=== PATIENT | male | born 1960 | race Caucasian/White ===

== ENCOUNTER 2016-09-11 11:16 | Day surgery (SDC) | payer OTHER ==
[~2016-09-11 11:16] MED LIST: BUPIVACAINE HCL 0.5 % INJ/PF 30 ML SDV ONE; CEFAZOLIN 2 GM/D5W RTU 2 GM/50 ML RTUPB IV PRN; GLYCOPYRROLATE INJ 0.4 MG/2 ML VIAL ONE; LACTATED RINGERS 1000 ML IV PRN; LIDOCAINE 0.5% INJ-PF (5 MG/ML) 50 ML SDV SUBCUT PRN; LIDOCAINE 2% INJ-PF (20 MG/ML) 10 ML AMPUL ONE; METOCLOPRAMIDE HCL INJ/PF 10 MG/2 ML SDV ONE; NEOSTIGMINE METHYLSULFATE 10 MG/10 ML VIAL ONE; ONDANSETRON HCL INJ/PF 4 MG/2 ML SDV ONE; ROCURONIUM BROMIDE INJ 50 MG/5 ML VIAL IV ONE; SUCCINYLCHOLINE CHLORIDE INJ 200 MG/10 ML VIAL ONE
[2016-09-11] MEDS ORDERED: FENTANYL CITRATE INJ/PF 250 MCG/5 ML AMPULE ONE (12:03)
[2016-09-11] MEDS ORDERED: PROPOFOL INJ 200 MG/20 ML VIAL IV ONE (12:04)
[2016-09-11] MEDS ORDERED: MORPHINE SULFATE 10 MG/ML INJ ONE (12:04)
[2016-09-11] MEDS ORDERED: MIDAZOLAM 2 MG/2 ML INJ ONE (12:04)
[2016-09-11] MEDS ORDERED: ACETAMINOPHEN 100 ML IV ONE (13:06)
[2016-09-11] MEDS ORDERED: ONDANSETRON HCL INJ/PF 4 MG/2 ML SDV IV PRN (14:26)
[2016-09-11] MEDS ORDERED: MORPHINE SULFATE 10 MG/ML INJ IV PRN (14:26)
[2016-09-11] MEDS ORDERED: OXYCODONE-ACETAMINOPHEN 5-325 MG TABLET PO PRN (14:26)
--- NOTE | 2016-09-11 14:30 | PDOC DISCHARGE SUMMARY ---
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 Raymond Reyes @ [facility] for Surgery to be seen in 10-14 days or as scheduled [place]: [place]: [place]: May remove dressing if too tight otherwise continue dressing until occupational therapy. Ice and elevate May begin finger range of motion attempting to make full fist. Patient to begin occupational therapy within 4 days of this surgical procedure Stool softener of choice when on pain medication. Prescriptions: Oxycodone HCl/Acetaminophen [Percocet 7.5-325 Mg Tablet] 1 each PO Q6 PRN #50 tablet PRN Reason: Discharge Diet: As Tolerated Respiratory Treatments at Home: Deep Breathing/Coughing Discharge Activity: Activity As Tolerated Report the Following to Your Physician Immediately: Increase in Pain, Fever over 101 Degrees, Unusual Bleeding, Redness, Swelling, Warmth, Numbness, Tingling Sensation
--- NOTE | 2016-09-11 14:39 | Operative Report ---
Operative Report DATE OF SURGERY: 09/11/16 PREOPERATIVE DIAGNOSIS: Contracture Left Hand POSTOPERATIVE DIAGNOSIS: Intrinsic contracture with PIP joint contracture left hand index finger through small finger OPERATION: LEFT Interosseus slide index through small finger metacarpal, distal intrinsic release index through small finger, PIP joint capsulectomy index through small finger, extensor tenolysis index finger through small finger. SURGEON: ELIN KILLIAN ANESTHESIA: [place] COMPLICATIONS: None ESTIMATED BLOOD LOSS: Minimal PROCEDURE: Indication for above procedure: 56-year-old male who developed intrinsic contractures of the index through small finger subsequently after Xiaflex injection. We attempted 6 months of conservative management without significant improvement in terms of motion. At that point we discussed treatment options including continued therapy versus observation versus operative release. After discussing this patient and I made the joint decision to proceed with contracture release. Procedure In Detail: Patient was seen and evaluated in the preoperative holding area. The LEFT upper extremity was initialized and marked. Patient received 2g of Ancef IV for bacterial prophylaxis. Patient was taken back to the operative room where transferred to the operative table and placed under general anesthesia. Once they were adequately anesthetized a nonsterile tourniquet was placed on the upper extremity. A surgical team debriefing was performed ensuring all instrumentation was available, the surgical procedure was discussed with possible concerns reviewed. The upper extremity was prepped with chlorhexidine and alcohol and draped in a sterile fashion. A timeout was done identifying correct patient, procedure and extremity everyone in attendance agree with this and verbalized no concerns. The extremity was exsanguinated the tourniquet was inflated to 250 mmHg. A mid axial skin incision was made along the ulnar border of the ring finger blunt dissection was performed the dorsal cutaneous branches were identified and retracted. The oblique slip and lateral band of the intrinsic mechanism was identified and excised. This allowed improved passive flexion of the ring finger PIP joint but continues to demonstrate tightness thus a second mid axial incision was made along the radial border once again blunt dissection was performed and the dorsal case branches were identified and retracted. The oblique slip and lateral band of the intrinsic mechanism radially was excised. I then freed the extensor mechanism and deformity extensor tenolysis dorsally and released the capsule of the PIP joint. With ease I was then able to fully passively flex the PIP joint. I then proceeded with ulnar and radial intrinsic releases as noted above at the index, middle and small finger once again obtain full passive flexion of the PIP joint. Patient continued to have a flexion contracture of the MCP joints of the index through small finger there was a Dupuytren's quarter on the ring finger but this did not extend distally and thus I do not feel the Dupuytren's cord was contributing to patient's MCP joint flexion thus I made 2 longitudinal skin incisions over the third and fourth metacarpals blunt dissection was performed the extensor mechanism was identified and retracted radially and ulnarly I was then able to release the interossei musculature off the metacarpal of the ulnar border of the second metacarpal, radial border of the fifth metacarpal and the radial and ulnar borders of the third and fourth metacarpals. This did produce improved passive flexion but patient continued to have a flexion contracture the MCP joint. Given the abundance of surgical dissection of each digit and dorsal hand I do not feel a palmar surgery would improve the patient at this juncture and would possibly cause increased swelling and further exacerbate his contracture. Thus the wounds were irrigated with normal saline. An closed with interrupted chromic gut suture. 30 mL of 0.5% Marcaine without epinephrine was injected for postoperative pain control. Wound was dressed with Xeroform and 4 x 4's. Patient was placed in a soft dressing with bias wrap placed around the PIP joints maintaining full PIP joint flexion. The tourniquet was deflated. Patient had good peripheral perfusion and cap refill of all digits. Sponge counts, instrument counts, needle counts counts were correct. Patient was then awoken from anesthesia. Transferred from the operating room table to the operating room stretcher. There was no intraoperative complications patient tolerated procedure well stable to PACU. Postoperative plan: Patient will begin occupational therapy within 4-5 days postoperatively to begin range of motion specifically PIP joint flexion. Patient will follow-up in office in 2 weeks at which point we will perform wound check and see how he has progressed occupational therapy.
[2016-09-11 16:21] VITALS: BP 95/60
== END 2016-09-11 16:30 | disposition home or self-care (01) ==
LOC: OROUT 11:16
PROVIDERS: ATTEND Orthopaedic Surgery
PROC: 0LN80ZZ Release Left Hand Tendon, Open Approach (ICD-10-PCS; 2016-09-11)
PROC: 0LN80ZZ Release Left Hand Tendon, Open Approach (ICD-10-PCS; principal; 2016-09-11 12:30)
DX: M24.542 Contracture, left hand (principal); E78.00 Pure hypercholesterolemia, unspecified; I10 Essential (primary) hypertension; F17.210 Nicotine dependence, cigarettes, uncomplicated; I50.9 Heart failure, unspecified; Z79.899 Other long term (current) drug therapy
CPT/HCPCS: 36415; 84132; 26445 ×4; 26460; J2250; J3490 ×2; J3010; J2765; J2270; J0330; J2405; J2704; J0690; J0131; 1810